=== PATIENT | female | born 2000 | race Caucasian/White ===

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

== ENCOUNTER 2020-07-12 08:35 | Outpatient (RCR) | payer OTHER, SELFPAY | END 2020-07-14 23:59 | LOC: EMPH 08:35 | PROVIDERS: Referring Provider Family Medicine Geriatric Medicine; Visit Provider Family Medicine Geriatric Medicine | DX: Z03.818 Encounter for observation for suspected exposure to other biological agents ruled out (principal) | CPT/HCPCS: 87426 ==

== ENCOUNTER 2020-08-06 10:46 | Outpatient (RCR) | payer OTHER, SELFPAY ==
[2020-07-23 18:05] LABS: Probe Check PASS; Specimen Processing Control PASS
[2020-08-06 11:22] LABS: Probe Check PASS; Specimen Processing Control PASS
== END 2020-08-13 23:59 ==
LOC: EMPH 10:46
PROVIDERS: Referring Provider Family Medicine Geriatric Medicine; Visit Provider Family Medicine Geriatric Medicine
DX: U07.1 COVID-19 (principal)
CPT/HCPCS: 87426; 87635; U0002

== ENCOUNTER 2021-12-04 08:45 | Outpatient (CLI) | payer OTHER, SELFPAY ==
--- NOTE | 2021-12-04 13:41 | NEURO ---
NCS and/or EMG Patient Report Ordering Doctor: Michael Wells DATE OF SERVICE: 12/04/21 Shell presents for electrodiagnostic testing of the upper limbs. She has complaints of numbness and tingling in both hands. Electrodiagnostic findings: Median motor nerve demonstrates normal distal latency, amplitude and conduction velocity bilaterally. The ulnar nerves demonstrate a normal distal latency and amplitude with a slightly less than 20% drop in conduction velocity across the elbow bilaterally. Sensory responses are within normal limits. Normal median and ulnar F waves bilaterally. On needle EMG, all muscles tested in the upper limbs, as well as the cervical paraspinals, showed no evidence of denervation with normal motor unit action potentials. Electrodiagnostic impression:This is an abnormal study in the upper limbs. 1. Electrodiagnostic findings suggestive of bilateral cubital tunnel syndrome, mild in nature. 2 No electrodiagnostic evidence for median neuropathy, including carpal tunnel syndrome 3. No EMG evidence for cervical radiculopathy.
== END 2021-12-04 23:59 | disposition home or self-care (01) ==
LOC: PSN 08:49
PROVIDERS: PCP Pediatrics; Referring Provider Psychiatry & Neurology Sleep Medicine; Visit Provider Psychiatry & Neurology Sleep Medicine
DX: R20.2 Paresthesia of skin (principal); R20.0 Anesthesia of skin; M54.2 Cervicalgia
CPT/HCPCS: 95886; 95912

== ENCOUNTER → 2023-01-23 | Outpatient (CLI) | payer OTHER, SELFPAY ==
[2023-01-23 11:34] LABS: Absolute Lymphocyte Count 1.56 X10^3/uL (0.83-4.51); Absolute Neutrophil Count 9.2 X10^3/uL (2.0-7.7); Basophil# 0.05 X10^3/uL; Basophil% 0.4 % (0-1); Eosinophil# 0.03 X10^3/uL; Eosinophils% 0.3 % (0-5); Hematocrit 41.1 % (37-47); Hemoglobin 13.3 g/dL (12.0-15.0); Lymphocyte # 1.56 X10^3/ul (0.83-4.51); Lymphocyte % 13.6 % (19-41); Mean Corp Hgb Conc 32.4 g/dL (32-36); Mean Corpuscular Hgb 29.2 pg (27.0-32.0); Mean Corpuscular Volume 90.3 fL (81-99); Mean Platelet Vol. 9.6 fl (6.2-12.0); Monocyte% 5.2 % (0-10); NRBC Flagged by Analyzer 0 % (0-5); Neutrophil # 9.15 X10^3/uL (2.7-7.7); Neutrophil % 80.2 % (47-70); Platelet Count 379 K/mm3 (150-450); RBC Distribution Width CV 12.5 % (11.6-14.6); RBC Distribution Width SD 41.1 fl (35.1-43.9); Red Blood Count 4.55 M/mm3 (4.2-5.4); White Blood Count 11.4 K/mm3 (4.4-11.0)
[2023-01-23 13:54] LABS: HIV - WCH Non-Reactive (Nonreactive); Hepatitis B Surface Antigen Non-Reactive (Nonreactive); Hepatitis C Antibody Non-Reactive (Nonreactive); Rubella IgG Equiv (Nonreactive); Syphilis Antibodies Non-reactive
[2023-01-26 22:06] LABS: Chlamydia By Nucleic Acid AMP Negative (Negative); Gonococcus By Nucleic Acid AMP Negative (Negative)
[2023-02-02 16:42] LABS: HPV Reflexed? NOT INDICATED
== END | disposition home or self-care (01) ==
PROVIDERS: Referring Provider Registered Nurse; Visit Provider Registered Nurse
DX: Z34.00 Encounter for supervision of normal first pregnancy, unspecified trimester (principal)
CPT/HCPCS: 36415; 85025; 86703; 86762; 86780; 86803; 86850; 86900; 86901; 87086; 87340; 87491; 87591; 88175; G0145

== ENCOUNTER → 2023-01-23 | Outpatient (CLI) | payer OTHER, SELFPAY ==
[2023-01-23 13:50] LABS: NATERA MAILED SPECIMEN
== END | disposition home or self-care (01) ==
PROVIDERS: Referring Provider Registered Nurse; Visit Provider Registered Nurse
DX: Z34.81 Encounter for supervision of other normal pregnancy, first trimester (principal); Z31.430 Encounter of female for testing for genetic disease carrier status for procreative management; Z3A.00 Weeks of gestation of pregnancy not specified
CPT/HCPCS: 36415

== ENCOUNTER → 2023-05-13 | Outpatient (CLI) | payer OTHER, SELFPAY ==
[2023-05-13 13:28] LABS: Glucose Challenge Gest 1H 50g 127 mg/dL (70-140)
[2023-05-13 14:01] LABS: HIV - WCH Non-Reactive (Nonreactive); Syphilis Antibodies Non-reactive
[2023-05-13 21:04] LABS: Xtra Tube EP Lab EXTRA TUBE
== END | disposition home or self-care (01) ==
PROVIDERS: Referring Provider Registered Nurse; Visit Provider Registered Nurse
DX: Z34.00 Encounter for supervision of normal first pregnancy, unspecified trimester (principal); Z3A.00 Weeks of gestation of pregnancy not specified
CPT/HCPCS: 36415; 82950; 86703; 86780

== ENCOUNTER → 2023-05-27 | Outpatient (CLI) | payer OTHER, SELFPAY ==
[2023-05-27 14:49] LABS: Absolute Lymphocyte Count 2.64 X10^3/uL (0.83-4.51); Absolute Neutrophil Count 7.7 X10^3/uL (2.0-7.7); Basophil# 0.05 X10^3/uL; Basophil% 0.4 % (0-1); Eosinophil# 0.08 X10^3/uL; Eosinophils% 0.7 % (0-5); Hematocrit 35.7 % (37-47); Hemoglobin 11.3 g/dL (12.0-15.0); Lymphocyte # 2.64 X10^3/ul (0.83-4.51); Lymphocyte % 23.6 % (19-41); Mean Corp Hgb Conc 31.7 g/dL (32-36); Mean Corpuscular Hgb 29.4 pg (27.0-32.0); Mean Corpuscular Volume 92.7 fL (81-99); Mean Platelet Vol. 9.7 fl (6.2-12.0); Monocyte# 0.67 X10^3/uL; NRBC Flagged by Analyzer 0 % (0-5); Neutrophil # 7.69 X10^3/uL (2.7-7.7); Neutrophil % 68.8 % (47-70); Platelet Count 342 K/mm3 (150-450); RBC Distribution Width CV 13.2 % (11.6-14.6); Red Blood Count 3.85 M/mm3 (4.2-5.4); White Blood Count 11.2 K/mm3 (4.4-11.0)
[2023-05-27 15:56] LABS: ALB/GLOB Ratio 0.8 RATIO (0.9-2.4); AST(SGOT) 16 U/L (15-37); Alanine Aminotransfer ALT/SGPT 16 U/L (13-56); Albumin, Serum 3.1 g/dL (3.2-5.0); Alkaline Phosphatase 71 U/L (45-117); Anion Gap 5 (5-15); BUN 5 mg/dL (7-18); BUN/Creat Ratio 9.3 RATIO (10-20); Calcium,Total 9.1 mg/dL (8.5-10.1); Chloride 107 mmol/L (98-107); Creatinine, Serum 0.54 mg/dL (0.55-1.02); EST Glomerular Filtration Rate 147 mL/min (>60); Est Glom Filt Rate - Afr Amer 178 mL/min (>60); Glucose 98 mg/dL (74-106); Potassium 3.6 mmol/L (3.5-5.1); Protein, Total 7.1 g/dL (6.4-8.2); Sodium Level 137 mmol/L (136-145); Total Bilirubin < 0.10 mg/dL (0.20-1.00)
== END | disposition home or self-care (01) ==
PROVIDERS: Referring Provider Registered Nurse; Visit Provider Registered Nurse
DX: O16.3 Unspecified maternal hypertension, third trimester (principal); Z3A.00 Weeks of gestation of pregnancy not specified
CPT/HCPCS: 36415; 80053; 85025

== ENCOUNTER → 2023-07-22 | Outpatient (CLI) | payer OTHER, SELFPAY ==
[2023-07-22 14:34] LABS: Absolute Neutrophil Count 8.1 X10^3/uL (2.0-7.7); Basophil# 0.06 X10^3/uL; Basophil% 0.5 % (0-1); Eosinophil# 0.08 X10^3/uL; Eosinophils% 0.7 % (0-5); Hematocrit 35.7 % (37-47); Hemoglobin 11.3 g/dL (12.0-15.0); Mean Corp Hgb Conc 31.7 g/dL (32-36); Mean Corpuscular Hgb 29.1 pg (27.0-32.0); Mean Platelet Vol. 9.7 fl (6.2-12.0); Monocyte# 0.74 X10^3/uL; Monocyte% 6.5 % (0-10); NRBC Flagged by Analyzer 0 % (0-5); Neutrophil # 8.07 X10^3/uL (2.7-7.7); Neutrophil % 70.5 % (47-70); Platelet Count 315 K/mm3 (150-450); RBC Distribution Width CV 14.1 % (11.6-14.6); RBC Distribution Width SD 47.4 fl (35.1-43.9); Red Blood Count 3.88 M/mm3 (4.2-5.4); White Blood Count 11.4 K/mm3 (4.4-11.0)
[2023-07-22 14:46] LABS: ALB/GLOB Ratio 0.8 RATIO (0.9-2.4); AST(SGOT) 16 U/L (15-37); Alanine Aminotransfer ALT/SGPT 12 U/L (13-56); Alkaline Phosphatase 110 U/L (45-117); Anion Gap 5 (5-15); BUN 6 mg/dL (7-18); BUN/Creat Ratio 10.8 RATIO (10-20); Calcium,Total 8.7 mg/dL (8.5-10.1); Chloride 106 mmol/L (98-107); Creatinine, Serum 0.56 mg/dL (0.55-1.02); EST Glomerular Filtration Rate 142 mL/min (>60); Est Glom Filt Rate - Afr Amer 172 mL/min (>60); Glucose 95 mg/dL (74-106); LDH 156 U/L (84-246); Potassium 3.8 mmol/L (3.5-5.1); Sodium Level 136 mmol/L (136-145)
[2023-07-22 14:54] LABS: Protein, Urine (Random) 8.5 mg/dL (<11.9); Protein:Creat Ratio 376 mg/g CRE (0-200)
== END | disposition home or self-care (01) ==
PROVIDERS: Referring Provider Obstetrics & Gynecology; Visit Provider Obstetrics & Gynecology
DX: O99.891 Other specified diseases and conditions complicating pregnancy (principal); Z3A.00 Weeks of gestation of pregnancy not specified; R03.0 Elevated blood-pressure reading, without diagnosis of hypertension
CPT/HCPCS: 36415; 80053; 82570; 83615; 84156; 84550; 85025; 87081

== ENCOUNTER 2023-07-25 09:00 | Outpatient (CLI) | payer OTHER, SELFPAY ==
[2023-07-25 09:11] VITALS: BMI 28.4
[2023-07-25 09:20] VITALS: TEMP 37.1
[2023-07-25 09:21] VITALS: BP 140/88; PULSE 96
--- NOTE | 2023-07-25 10:23 | OB.TRI.HP_ITS ---
HPI - General HPI Narrative MELO BIRMINGHAM, is a 23 y/o @ 36 weeks 5 days who presents to L&D for a scheduled NST and cervix check. she has newly diagnosed mild pre-e and has an IOL set up for 37 weeks. She denies headaches, visual changes, or epigastric pain. Maternal Data Information CEASAR Calculator Estimated Delivery Date Method Current WG Current Estimate 08/17/23 LMP (Certain) 36w 5d PFSH PFSH Home Medications prenat.vits,stevie,bym-[id number]-[id number] 1 tab PO DAILY 06/24/23 [History Last Taken 07/24/23] Allergy/AdvReac Type Severity Reaction Status Date / Time No Known Allergies Allergy Verified 07/25/23 09:12 Social History household members: spouse housing: house number of children: 0 current occupational status: employed current occupation: [employer] pets and animals: Yes Smoking Status: Never smoker alcohol intake: never substance use type: does not use additional social history: - Loyd -dorita @ [employer] Visit Details Expected Delivery Route/Plan Labor Preferences- CB/BF classes: yes labor support person: Loyd labor intervention preferences: [] pain management options preferred: open to epidural if needed cut cord/dad catch: cord : yes PP control planned: discussed discussed possible routes of delivery and associated risks: [] special requests: [] Plans Covid status: unvaccinated Flu vaccine: [] Tdap vaccine: [] Rhogam: na LARC form signed: yes Problem list reviewed and updated with the most current plan of care details and appropriate orders placed. Relevant counseling for the gestational age provided. Continue routine care and follow up unless otherwise noted in visit notes/problem list details OB Flowsheet Initial Weight: Not Recorded Date -?-?-?-?-?-?-?-?-?-?-?-?- EGA Weight BP Urine Prot -?-?-?-?-?-?-?-?-?-?-?-?- Glucose FHR FuHt Pres Dilation -?-?-?-?-?-?-?-?-?-?-?-?- Effaced St Visit Note 01/23/23 -?-?-?-?-?-?-?-?-?-?-?-?- 10w 4d 131 lb 6 oz 160/86 130/90 -?-?-?-?-?-?-?-?-?-?-?-?- 185 -?-?-?-?-?-?-?-?-?-?-?-?- LC- new ob. us c w LMP. scan with JV. accepts carrier and genetic screening. oriented to practice 02/17/23 -?-?-?-?-?-?-?-?-?-?-?-?- 14w 1d 135 lb 4 oz 137/82 Nega tive -?-?-?-?-?--?-?-?-?-?-?-?- Negative 165 -?-?-?-?-?-?-?-?-?-?-?-?- KW-no vb/crampin g. formal ultrasound ordered. AFP discussed 03/18/23 -?-?-?-?-?-?-?-?-?-?-?-?- 18w 2d 138 lb 8 oz 134/79 Nega tive -?-?-?-?-?-?-?-?-?-?-?-?- Negative 165 -?-?-?-?-?-?-?-?-?-?-?-?- JV- no lof, vagi nal bleeding, or cramping. has anatomy scan scheduled for 03/23/23 04/15/23 -?-?-?-?-?-?-?-?-?-?-?-?- 22w 2d 143 lb 4 oz 146/82 124/78 -?-?-?-?-?-?-?-?-?-?-?-?- 158 -?-?-?-?-?-?-?-?-?-?-?-?- LC-no vb/crampin g. no concerns. 05/13/23 -?-?-?-?-?-?-?-?-?-?-?-?- 26w 2d 148 lb 124/82 Negative -?-?-?-?-?-?-?-?-?-?-?-?- Negative 153 -?-?-?-?-?-?-?-?-?-?-?-?- MH-No VB, LOF. G ood FM. [facility]. 28 wk labs. 05/27/23 -?-?-?-?-?-?-?-?-?-?-?-?- 28w 2d 150 lb 8 oz 144/76 Nega tive -?-?-?-?-?-?-?-?-?-?-?-?- Negative 140 28 -?-?-?-?-?-?-?-?-?-?-?-?- LC- no lof/ctx/v b. good fm. denies davalos/visual changes, ruq pain.cbc not obained at 26 weeks, will obtain with CMP. LC- no lof/ctx/vb. good fm. denies davalos/visual changes, ruq pain.cbc not obained at 26 weeks, will obtain with CMP. wants tdap at 34 weeks. 06/10/23 -?-?-?-?-?-?-?-?-?-?-?-?- 30w 2d 153 lb 8 oz 127/70 Nega tive -?-?-?-?-?-?-?-?-?-?-?-?- Negative 145 30 -?-?-?-?-?-?-?-?-?-?-?-?- JV- no lof, vagi nal bleeding, or dec fm. bp's normal at home and here since last visit. 06/24/23 -?-?-?-?-?-?-?-?-?-?-?-?- 32w 2d 155 lb 6 oz 155/88 128/66 -?-?-?-?-?-?-?-?-?-?-?-?- 140 32 -?-?-?-?-?-?-?-?-?-?-?-?- LC- no vb/lof/ LC- no vb/lof/ctx. good fm. tdap today.no concerns. 07/08/23 -?-?-?-?-?-?-?-?-?-?-?-?- 34w 2d 158 lb 2 oz 134/78 Nega tive -?-?-?-?-?-?-?-?-?-?-?-?- Negative 145 34 Cephalic -?-?-?-?-?-?-?-?-?-?-?-?- JV- no lof, vagi nal bleeding, or dec fm. still has indigestion. omeprazole not working and since at cat3, recommend stopping it. bp normal today. if high again next visit willrpt pih labs and order us. 07/22/23 -?-?-?-?-?-?-?-?-?-?-?-?- 36w 2d 161 lb 4 oz 138/89 Nega tive -?-?-?-?-?-?-?-?-?-?-?-?- Negative 140 35 Cephalic -?-?-?-?-?-?-?-?-?-?-?-?- JV- pt became te arful and argumentative when told that bp was slightly elevated again today. we decided last week that she would have labs for PIH if bp remained high. she states that she had a normal blood pressure at home. denies headaches and visual changes. No RUQ pain. Risks of pre-eclampsia discussed. GBS collected. no protein in urine. JV- bp slightly elevated aga in. sending for PIH labs. has no symptoms of headache, visual changes, or RUQ pain. States BP at home is always normal. ROS Constitutional Constitutional: Reports systems reviewed and no addt'l complaints, except as documented Gastrointestinal Gastrointestinal: Denies bloating, constipation, cramping, diarrhea, nausea or vomiting Genitourinary Genitourinary: Reports other Details: Denies vaginal odor, vaginal bleeding, or vaginal discharge ; Denies difficulty urinating or flank pain NST FHR Rate Baby A Baseline: 140 Variability:: Moderate Accelerations:: 15 x 15 Decelerations:: None NST Reactive:: Yes FHR Category:: Category I Assessment & Plan (1) Mild pre-eclampsia: COMMENT: plan IOL at 37 weeks. (thursday07/27/23 at 7pm) NST on thursday07/25/23 on L&D PLAN: NST reactive. plan for IOL thursday pm - cytotec. cx is 0.5 cm dilated today. (2) Not immune to rubella: COMMENT: Equivocal-offer MMR PP (3) : QUALIFIERS: Weeks of gestation: 36 weeks Qualified Code(s): Z3A.36 - 36 weeks gestation of COMMENT: NIPT low risk, carrier neg. . normal anatomy (4) Supervision of normal first : QUALIFIERS: Trimester: second trimester Qualified Code(s): Z34.02 - Encounter for supervision of normal first , second trimester COMMENT: PRR, CEASAR 08/17/2023, Loyd Charges/Coding Multi Select Codes Urinary/Genital Urinary/Genital CPT Codes: 33957-82 non-stress test Interp
--- NOTE | 2023-07-25 10:23 | OB.TRI.NOTE ---
HPI - General HPI Narrative MELO BIRMINGHAM, is a 23 y/o @ 36 weeks 5 days who presents to L&D for a scheduled NST and cervix check. she has newly diagnosed mild pre-e and has an IOL set up for 37 weeks. She denies headaches, visual changes, or epigastric pain. Maternal Data Information CEASAR Calculator Estimated Delivery Date Method Current WG Current Estimate 08/17/23 LMP (Certain) 36w 5d PFSH PFSH Home Medications prenat.vits,stevie,[id number]-sndgv 1 tab PO DAILY 06/24/23 [History Last Taken 07/24/23] Allergy/AdvReac Type Severity Reaction Status Date / Time No Known Allergies Allergy Verified 07/25/23 09:12 Social History household members: spouse housing: house number of children: 0 current occupational status: employed current occupation: [employer] pets and animals: Yes Smoking Status: Never smoker alcohol intake: never substance use type: does not use 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 Relevant counseling for the gestational age provided. Continue routine care and follow up unless otherwise noted in visit notes/problem list details OB Flowsheet Initial Weight: Not Recorded Date <del>?</del> EGA Weight BP Urine Prot <del>?</del> Glucose FHR FuHt Pres Dilation <del>?</del> Effaced St Visit Note 01/23/23 <del>?</del> 10w 4d 131 lb 6 oz 160/86 130/90 <del>?</del> 185 <del>?</del> LC- new ob. us cw LMP. scan with JV. accepts carrier and genetic screening. oriented to practice 02/17/23 <del>?</del> 14w 1d 135 lb 4 oz 137/82 Negative <del>?</del> Negative 165 <del>?</del> KW-no vb/cramping. formal ultrasound ordered. AFP discussed 03/18/23 <del>?</del> 18w 2d 138 lb 8 oz 134/79 Negative <del>?</del> Negative 165 <del>?</del> JV- no lof, vaginal bleeding, or cramping. has anatomy scan scheduled for 03/23/23 04/15/23 <del>?</del> 22w 2d 143 lb 4 oz 146/82 124/78 <del>?</del> 158 <del>?</del> LC-no vb/cramping. no concerns. 05/13/23 <del>?</del> 26w 2d 148 lb 124/82 Negative <del>?</del> Negative 153 <del>?</del> MH-No VB, LOF. Good FM. Larc. 28 wk labs. 05/27/23 <del>?</del> 28w 2d 150 lb 8 oz 144/76 Negative <del>?</del> Negative 140 28 <del>?</del> LC- no lof/ctx/vb. good fm. denies davalos/visual changes, ruq pain.cbc not obained at 26 weeks, will obtain with CMP. LC- no lof/ctx/vb. good fm. denies davalos/visual changes, ruq pain.cbc not obained at 26 weeks, will obtain with CMP. wants tdap at 34 weeks. 06/10/23 <del>?</del> 30w 2d 153 lb 8 oz 127/70 Negative <del>?</del> Negative 145 30 <del>?</del> JV- no lof, vaginal bleeding, or dec fm. bp's normal at home and here since last visit. 06/24/23 <del>?</del> 32w 2d 155 lb 6 oz 155/88 128/66 <del>?</del> 140 32 <del>?</del> LC- no vb/lof/ LC- no vb/lof/ctx. good fm. tdap today.no concerns. 07/08/23 <del>?</del> 34w 2d 158 lb 2 oz 134/78 Negative <del>?</del> Negative 145 34 Cephalic <del>?</del> JV- no lof, vaginal bleeding, or dec fm. still has indigestion. omeprazole not working and since at cat3, recommend stopping it. bp normal today. if high again next visit [facility] and order us. 07/22/23 <del>?</del> 36w 2d 161 lb 4 oz 138/89 Negative <del>?</del> Negative 140 35 Cephalic <del>?</del> JV- pt became tearful and argumentative when told that bp was slightly elevated again today. we decided last week that she would have labs for PIH if bp remained high. she states that she had a normal blood pressure at home. denies headaches and visual changes. No RUQ pain. Risks of pre-eclampsia discussed. GBS collected. no protein in urine. JV- bp slightly elevated again. sending for PIH labs. has no symptoms of headache, visual changes, or RUQ pain. States BP at home is always normal. ROS Constitutional Constitutional: Reports systems reviewed and no addt'l complaints, except as documented Gastrointestinal Gastrointestinal: Denies bloating, constipation, cramping, diarrhea, nausea or vomiting Genitourinary Genitourinary: Reports other Details: Denies vaginal odor, vaginal bleeding, or vaginal discharge ; Denies difficulty urinating or flank pain NST FHR Rate Baby A Baseline: 140 Variability:: Moderate Accelerations:: 15 x 15 Decelerations:: None NST Reactive:: Yes FHR Category:: Category I Assessment & Plan (1) Mild pre-eclampsia: COMMENT: plan IOL at 37 weeks. (thursday07/27/23 at 7pm) NST on thursday07/25/23 on L&D PLAN: NST reactive. plan for IOL thursday pm - cytotec. cx is 0.5 cm dilated today. (2) Not immune to rubella: COMMENT: Equivocal-offer MMR PP (3) : QUALIFIERS: Weeks of gestation: 36 weeks Qualified Code(s): Z3A.36 - 36 weeks gestation of COMMENT: NIPT low risk, carrier neg. . normal anatomy (4) Supervision of normal first : QUALIFIERS: Trimester: second trimester Qualified Code(s): Z34.02 - Encounter for supervision of normal first , second trimester COMMENT: PRR, CEASAR 08/17/2023, Loyd Charges/Coding Multi Select Codes Urinary/Genital Urinary/Genital CPT Codes: 31991-40 non-stress test Interp
== END 2023-07-25 10:20 | disposition home or self-care (01) ==
LOC: WPOUT 09:04 → WP 09:05
PROVIDERS: Referring Provider Registered Nurse; Visit Provider Registered Nurse
DX: O14.03 Mild to moderate pre-eclampsia, third trimester (principal); Z3A.36 36 weeks gestation of pregnancy
CPT/HCPCS: 59025; 59050; 99221; G0378

== ENCOUNTER 2023-07-27 19:04 | Inpatient (IN) | payer OTHER, SELFPAY ==
[2023-07-27 19:24] VITALS: BMI 28.7
[2023-07-27] MEDS: Lactated Ringers 1,000 ML 50 ML IV (19:35)
[2023-07-27 19:58] LABS: Absolute Lymphocyte Count 2.81 X10^3/uL (0.83-4.51); Absolute Neutrophil Count 7.1 X10^3/uL (2.0-7.7); Basophil# 0.05 X10^3/uL; Basophil% 0.5 % (0-1); Eosinophil# 0.06 X10^3/uL; Eosinophils% 0.6 % (0-5); Hematocrit 35.6 % (37-47); Hemoglobin 11.4 g/dL (12.0-15.0); Lymphocyte # 2.81 X10^3/ul (0.83-4.51); Lymphocyte % 26.1 % (19-41); Mean Corpuscular Hgb 29.5 pg (27.0-32.0); Mean Corpuscular Volume 92.2 fL (81-99); Mean Platelet Vol. 10.1 fl (6.2-12.0); Monocyte# 0.74 X10^3/uL; Monocyte% 6.9 % (0-10); NRBC Flagged by Analyzer 0 % (0-5); Neutrophil # 7.05 X10^3/uL (2.7-7.7); Neutrophil % 65.5 % (47-70); Platelet Count 323 K/mm3 (150-450); RBC Distribution Width SD 46.3 fl (35.1-43.9); Red Blood Count 3.86 M/mm3 (4.2-5.4); White Blood Count 10.8 K/mm3 (4.4-11.0)
[2023-07-27 20:08] LABS: Protein, Urine (Random) 9.2 mg/dL (<11.9); Protein:Creat Ratio 138 mg/g CRE (0-200)
--- NOTE | 2023-07-27 20:08 | HP.PCM.OB_ITS ---
HPI - General General Date of Admission: 07/27/23 HPI Narrative MELO BIRMINGHAM, is a 23 F who presents at 37 weeks for IOL for mild pre- eclampsia. BP elevated last week with +proteinuria. reactive NST on Thursday.. denies headaches, visual changes or RUQ pain. active fetus, negative lof/vb/ctx GBS negative Maternal Data Information CEASAR Calculator Estimated Delivery Date Method Current WG Current Estimate 08/17/23 LMP (Certain) 37w 0d PFSH PFSH Home Medications prenat.vits,stevie,yzv-aoru-dyzrq 1 tab PO DAILY 06/24/23 [History Last Taken 07/26/23 21:00] Allergy/AdvReac Type Severity Reaction Status Date / Time No Known Allergies Allergy Verified 07/27/23 19:26 Social History household members: spouse housing: house number of children: 0 current occupational status: employed current occupation: [employer] pets and animals: Yes Smoking Status: Never smoker alcohol intake: never substance use type: does not use additional social history: - Loyd neil @ [employer] History Elective abortions Hx Para 0 Spontaneous abortions Hx # Term Pregnancies Ectopic pregnancies Hx # Pregnancies Multiple births # of living children Visit Details Expected Delivery Route/Plan Labor Preferences- CB/BF classes: yes labor support person: Loyd labor intervention preferences: [] pain management options preferred: open to epidural if needed cut cord/dad catch: cord : yes PP control planned: discussed discussed possible routes of delivery and associated risks: [] special requests: [] Plans Covid status: unvaccinated Flu vaccine: [] Tdap vaccine: [] Rhogam: na LARC form signed: yes Problem list reviewed and updated with the most current plan of care details and appropriate orders placed. Relevant counseling for the gestational age provided. Continue routine care and follow up unless otherwise noted in visit notes/problem list details OB Flowsheet Initial Weight: Not Recorded Date -?-?-?-?-?-?-?-?-?-?-?-?- EGA Weight BP Urine Prot -?-?-?-?-?-?-?-?-?-?-?-?- Glucose FHR FuHt Pres Dilation -?-?-?-?-?-?-?-?-?-?-?-?- Effaced St Visit Note 01/23/23 -?-?-?-?-?-?-?-?-?-?-?-?- 10w 4d 131 lb 6 oz 160/86 130/90 -?-?-?-?-?-?-?-?-?-?-?-?- 185 -?-?-?-?-?-?-?-?-?-?-?-?- LC- new ob. us c w LMP. scan with JV. accepts carrier and genetic screening. oriented to practice 02/17/23 -?-?-?-?-?-?-?--?-?-?-?-?- 14w 1d 135 lb 4 oz 137/82 Nega tive -?-?-?-?-?-?-?-?-?-?-?-?- Negative 165 -?-?-?-?-?-?-?-?-?-?-?-?- KW-no vb/crampin g. formal ultrasound ordered. AFP discussed 03/18/23 -?-?-?-?-?-?-?-?-?-?-?-?- 18w 2d 138 lb 8 oz 134/79 Nega tive -?-?-?-?-?-?-?-?-?-?-?-?- Negative 165 -?-?-?-?-?-?-?-?-?-?-?-?- JV- no lof, vagi nal bleeding, or cramping. has anatomy scan scheduled for 03/23/23 04/15/23 -?-?-?-?-?-?-?-?-?-?-?-?- 22w 2d 143 lb 4 oz 146/82 124/78 -?-?-?-?-?-?-?-?-?-?-?-?- 158 -?-?-?-?-?-?-?-?-?-?-?-?- LC-no vb/crampin g. no concerns. 05/13/23 -?-?-?-?-?-?-?-?-?--?-?-?- 26w 2d 148 lb 124/82 Negative -?-?-?-?-?-?-?-?-?-?-?-?- Negative 153 -?-?-?-?-?-?-?-?-?-?-?-?- MH-No VB, LOF. G ood FM. Larc. 28 wk labs. 05/27/23 -?-?-?-?-?-?-?-?-?-?-?-?- 28w 2d 150 lb 8 oz 144/76 Nega tive -?-?-?-?-?-?-?-?-?-?-?-?- Negative 140 28 -?-?-?-?-?-?-?-?-?--?-?-?- LC- no lof/ctx/v b. good fm. denies davalos/visual changes, ruq pain.cbc not obained at 26 weeks, will obtain with CMP. LC- no lof/ctx/vb. good fm. denies davalos/visual changes, ruq pain.cbc not obained at 26 weeks, will obtain with CMP. wants tdap at 34 weeks. 06/10/23 -?-?-?-?-?-?-?-?-?-?-?-?- 30w 2d 153 lb 8 oz 127/70 Nega tive -?-?-?-?-?-?-?-?-?-?--?-?- Negative 145 30 -?-?-?-?-?-?-?-?-?-?-?-?- JV- no lof, vagi nal bleeding, or dec fm. bp's normal at home and here since last visit. 06/24/23 -?-?-?-?-?-?-?-?-?-?-?-?- 32w 2d 155 lb 6 oz 155/88 128/66 -?-?-?-?-?-?-?-?-?-?-?-?- 140 32 -?-?-?-?-?-?-?-?-?-?-?-?- LC- no vb/lof/ LC- no vb/lof/ctx. good fm. tdap today.no concerns. 07/08/23 -?-?-?-?-?-?-?-?-?-?-?-?- 34w 2d 158 lb 2 oz 134/78 Nega tive -?-?-?-?-?-?-?-?-?-?-?-?- Negative 145 34 Cephalic -?-?-?-?-?-?-?-?-?-?-?-?- JV- no lof, vagi nal bleeding, or dec fm. still has indigestion. omeprazole not working and since at cat3, recommend stopping it. bp normal today. if high again next visit willrpt pih labs and order us. 07/22/23 -?-?-?-?-?-?-?-?-?-?-?-?- 36w 2d 161 lb 4 oz 138/89 Nega tive -?-?-?-?-?-?-?-?-?-?-?-?- Negative 140 35 Cephalic -?-?-?-?-?-?-?-?-?-?-?-?- JV- pt became te arful and argumentative when told that bp was slightly elevated again today. we decided last week that she would have labs for PIH if bp remained high. she states that she had a normal blood pressure at home. denies headaches and visual changes. No RUQ pain. Risks of pre-eclampsia discussed. GBS collected. no protein in urine. JV- bp slightly elevated aga in. sending for PIH labs. has no symptoms of headache, visual changes, or RUQ pain. States BP at home is always normal. NST FHR Rate Baby A Baseline: 140 Variability:: Moderate Accelerations:: 15 x 15 Decelerations:: None NST Reactive:: Yes FHR Category:: Category I Uterine Activity:: irregular ROS Cardiovascular Cardiovascular: Denies abdominal pain, chest pain, diaphoresis or dyspnea Respiratory/Chest Respiratory/Chest: Denies change in mental status, chest congestion, chest tightness, cough, shortness of breath at rest, shortness of breath with exertion, breast mass, breast pain, breast skin changes, breast swelling, change in breast shape or nipple discharge Genitourinary Genitourinary: Reports change in urinary stream Musculoskeletal Musculoskeletal: Reports none Integumentary Integumentary: Reports none Neurologic Neurologic: Reports none Psychiatric Psychiatric: Reports none Endocrine Endocrinology: Reports none Hematologic/Lymphatic Hematologic/Lymphatic: Reports none Allergic/Immunologic Allergic/Immunologic: Reports none Vital Signs Vital Signs Vital Signs: Weight Weight: 162 lb 4.163 oz Body Mass Index (BMI) 28.7 Physical Exam Const alert, oriented x3 and no apparent distress General Appearance: cooperative, comfortable and well kempt Orientation / Consciousness: awake and oriented to person Exam Limitations: no limitations HEENT normocephalic Neck full ROM Chest inspection of chest normal Resp normal respiratory effort, normal air movement and no retractions Effort and Inspection: able to speak in complete sentences and symmetric chest movement Cardio regular rate Peripheral Pulses: pulses 2+ throughout GI normal to inspection, nondistended, normoactive bowel sounds Inspection: gravid no CVA tenderness and appearance of the vagina normal External Female Exam: normal appearance of the urethra; Negative for external lesion OB / External & Speculum: external exam normal Manual OB Exam: estimated gestational size appropriate and presentation cephalic Uterus Palpation: Negative for uterus tender Extremity normal to inspection Skin no rashes or lesions noted Neuro deep tendon reflexes 2+ bilaterally and gait normal Motor Exam: strength 5/5 throughout and clonus absent Psych Activity / Motor Behavior: appropriate eye contact Speech: normal speech Labs Labs Labs: Blood Type A POSITIVE Antibody Screen NEGATIVE Hct 35.6 % (37-47) L Hgb 11.4 g/dL (12.0-15.0) L Syphilis Total Ab Non-reactive Rubella IgG Antibody Equiv (Nonreactive) Hep Bs Antigen Non-Reactive (Nonreactive) Hepatitis C Antibody Non-Reactive (Nonreactive) Chlamydia DNA (GOPAL) Negative (Negative) N.gonorrhoeae DNA (GOPAL) Negative (Negative) HIV 1&2 Antibody Non-Reactive (Nonreactive) Glucose 1 Hr 50 gm 127 mg/dL (70-140) Assessment & Plan (1) Mild pre-eclampsia: COMMENT: plan IOL at 37 weeks. (thursday07/27/23 at 7pm) NST on thursday07/25/23 on L&D PLAN: cytotec 25mcg q4 hours (2) Elevated BP without diagnosis of hypertension: COMMENT: baseline labs obtained and normal. seems to be isolated to one episode (3) Not immune to rubella: COMMENT: Equivocal-offer MMR PP (4) : QUALIFIERS: Weeks of gestation: 36 weeks Qualified Code(s): Z3A.36 - 36 weeks gestation of COMMENT: Neg GBS.NIPT low risk, carrier neg. . normal anatomy (5) Supervision of normal first : QUALIFIERS: Trimester: second trimester Qualified Code(s): Z34.02 - Encounter for supervision of normal first , second trimester COMMENT: PRR, CEASAR 08/17/2023, Loyd PLAN: Plan Patient presents IOL for pre-eclampsia at 37 weeks without severe features. Pain management: plans epidural. GBS negative. Management of any complications: pre-eclampsia I have reviewed the [facility] and made any clinically relevant updates. updated on admission, exam and plan of care and agrees with midwifery co-management for mild pre-eclampsia.
[2023-07-27] MEDS: Mag Hydrox/Al Hydrox/Simeth 30 ML UDC PO (20:12)
[2023-07-27 20:17] LABS: AST(SGOT) 22 U/L (15-37); Alanine Aminotransfer ALT/SGPT 17 U/L (13-56); EST Glomerular Filtration Rate 129 mL/min (>60); Est Glom Filt Rate - Afr Amer 157 mL/min (>60); Uric Acid 4.3 mg/dL (2.6-6.0)
[2023-07-27 20:20] VITALS: BP 146/81; PULSE 80; TEMP 36.9
[2023-07-27 20:38] LABS: Syphilis Antibodies Non-reactive
[2023-07-27] MEDS: Famotidine 20 MG Tablet PO (21:07)
[2023-07-27] MEDS: miSOPROStol 25 MCG TABLET PO (21:24)
[2023-07-27 21:25] VITALS: BP 135/83
[2023-07-27 21:26] VITALS: PULSE 79; TEMP 37.1; O2SAT 98
[2023-07-28] VITALS (33 sets, daily range): BP systolic 114–167; BP diastolic 63–104; PULSE 75–112; TEMP 36.1–36.9; O2SAT 99–100
[2023-07-28] MEDS: miSOPROStol 25 MCG TABLET PO ×2 (01:35→05:38)
[2023-07-28] MEDS: Acetaminophen 500 MG Tablet PO (02:34)
[2023-07-28] MEDS: Famotidine 20 MG Tablet PO ×2 (08:07→20:12)
[2023-07-28] MEDS: Ondansetron 4 MG/2 ML Vial IV (08:13)
[2023-07-28] MEDS: 0.9% Saline Lock 10 ML Syringe IV ×2 (08:14→20:12)
[2023-07-28] MEDS: miSOPROStol 50 MCG TABLET PO ×2 (09:39→16:08)
--- NOTE | 2023-07-28 11:57 | PN_ITS ---
Progress Note Coping well with contractions current tracing: FHT: 135 Moderate variability reactive no decelerations category I tracing [place]: 2-4 minute Contractions Membranes: intact SVE: 1/50/-3 at 0800 this am A/P: Continue with position changes Continue Cytotec Repeat SVE between [id number] Start pitocin per protocol when appropriate Epidural per anesthesia Anticipate Dr Brandon aware of plan and agrees with plan of care Assessment & Plan Assessment/Plan (1) Mild pre-eclampsia: (2) Elevated BP without diagnosis of hypertension: (3) Not immune to rubella: (4) : QUALIFIERS: Weeks of gestation: 36 weeks Qualified Code(s): Z3A.36 - 36 weeks gestation of (5) Supervision of normal first : QUALIFIERS: Trimester: second trimester Qualified Code(s): Z34.02 - Encounter for supervision of normal first , second trimester (6) Encounter for induction of labor: PLAN: Patient presents IOL, plan management for with cytotec/pitocin/AROM. Pain management: plans epidural. GBS negative. Management of any complications: mild pre eclampsia I have reviewed the [facility] and made any clinically relevant updates. Procedures Urinary/Genital [id number]: No Charge
[2023-07-28] MEDS: 0.9% Normal Saline Single 100 ML IV.SOLN. INTRA-UTER (20:53)
[2023-07-28] MEDS: fentaNYL 100 MCG/2 ML Ampul IV (21:02)
--- NOTE | 2023-07-28 21:03 | PN_ITS ---
Progress Note Coping well with contractions current tracing: FHT: 140 Moderate variability reactive no decelerations category I tracing [place]: 3-5 Contractions Membranes: intact SVE: 1.5/50/-2 reviewed tracing abnormalities since last note: none noted A/P: Mann Bulb placed Continue with position changes Start and titrate pitocin per protocol when appropriate Epidural when requested per anesthesia Anticipate Dr Brandon aware of plan and agrees with plan of care Assessment & Plan Assessment/Plan (1) Encounter for induction of labor: (2) Mild pre-eclampsia: (3) Elevated BP without diagnosis of hypertension: (4) Not immune to rubella: (5) : QUALIFIERS: Weeks of gestation: 36 weeks Qualified Code(s): Z3A.36 - 36 weeks gestation of (6) Supervision of normal first : QUALIFIERS: Trimester: second trimester Qualified Code(s): Z34.02 - Encounter for supervision of normal first , second trimester Multi Select Codes Urinary/Genital Urinary/Genital CPT Codes: No Charge
[2023-07-28] MEDS: Lactated Ringers 1,000 ML 200 ML IV (22:12)
[2023-07-28] MEDS: LACTATED RINGERS 500 ML 999 ML IV (22:13)
[2023-07-28] MEDS: Oxytocin 15 Units/NS 250ml 15 UNITS/250 ML IV.SOLN 2 UNITS IV (23:00)
[2023-07-28] MEDS: fentaNYL-bupivacaine (epidural) 100 ML BAG EPIDURAL (23:05)
[2023-07-29] VITALS (40 sets, daily range): BP systolic 106–140; BP diastolic 54–93; PULSE 58–144; RESP 14–20; TEMP 36.1–36.9; O2SAT 83–100
[2023-07-29] MEDS: Ondansetron 4 MG/2 ML Vial IV ×3 (00:19→14:04)
[2023-07-29] MEDS: 0.9% Saline Lock 10 ML Syringe IV ×2 (00:19→21:05)
[2023-07-29] MEDS: proCHLORPERazine 10 MG/2 ML Vial IV ×2 (01:04→19:53)
[2023-07-29] MEDS: Lactated Ringers 1,000 ML 200 ML IV ×3 (02:38→12:54)
[2023-07-29] MEDS: fentaNYL-bupivacaine (epidural) 100 ML BAG EPIDURAL ×3 (02:39→11:22)
[2023-07-29] MEDS: LACTATED RINGERS 500 ML 999 ML IV (05:00)
--- NOTE | 2023-07-29 08:09 | PCM.PN.BLA ---
Progress Note pt is comfortable with epidural. Nurses report that a farris bulb was placed last night and came out spontaneously at 1 am. Her membranes then ruptured spontaneously but that a forebag may still be present current tracing: FHT: 130's, Moderate variability reactive no decelerations category I tracing [place]: q2 min with some coupling Contractions Cx: 4/60/-3, forebag ruptured and IUPC placed Extremities: now has 2+ pitting edema, this is a change from her office visit last week A/P: 23 y/o G1 @ 37 weeks 2 days, mild pre-eclampsia. bp currently 140's/90's, no headaches or severe features -continue pitocin and close observation.
[2023-07-29] MEDS: Famotidine 20 MG Tablet PO (08:12)
--- NOTE | 2023-07-29 13:04 | PCM.PN.BLA ---
Progress Note pt is complaining of intermittent mid abdominal pain and vaginal pressure. The nurses have been performing side lying release, and other different positions to help her dilate. She denies fevers or chills. nausea improved current tracing: FHT: 140 Moderate variability reactive no decelerations category I tracing currently. There was one area of concern that showed a slow decline in the heart beat with slow gradual return and another that showed a late deceleration, but overall cat 1 tracing. [place]: some coupling Contractions. MVU's are at times 120's and others 250's. Pitocin is at 18 currently cx: unchanged from am exam. 60/-3. clear fluid still. A/P: mild pre-e protracted labor membranes ruptured x 13 hours, pitocin running for 12 hours without cervical change pt was given the option for continuing to max pitocin or to have a section now. She wants to wait a little longer still. Nurses will check her again at 3 pm and call with exam
[2023-07-29] MEDS: Acetaminophen 500 MG Tablet PO ×2 (14:44→14:50)
[2023-07-29] MEDS: Sodium Citrate/Citric Acid 30 ML UDC PO (16:07)
[2023-07-29] MEDS: Cefazolin 2 GM in 0.9% Normal Saline (100mL Bag) 100 ML IV (16:15)
[2023-07-29] MEDS: Carboprost Tromethamine 250 MCG/ML Ampul IM (16:55)
[2023-07-29] MEDS: Azithromycin 500 MG in Dextrose 5%-Water (250mL Bag) 250 ML 250 MG IV (17:00)
[2023-07-29] MEDS: BUPIVACAINE LIPOSOME/PF 20 ML VIAL OPERA.SITE (17:15)
[2023-07-29] MEDS: Bupivacaine 0.25% 30 ML Vial (17:15)
--- NOTE | 2023-07-29 17:21 | EX.PCM.OBRPT ---
Assessment & Plan (1) Failure to progress in first stage of labor: (2) Mild pre-eclampsia: COMMENT: plan IOL at 37 weeks. (thursday07/27/23 at 7pm) NST on thursday07/25/23 on L&D (3) Not immune to rubella: COMMENT: Equivocal-offer MMR PP (4) : QUALIFIERS: Weeks of gestation: 36 weeks Qualified Code(s): Z3A.36 - 36 weeks gestation of COMMENT: Neg GBS.NIPT low risk, carrier neg. . normal anatomy (5) Supervision of normal first : QUALIFIERS: Trimester: second trimester Qualified Code(s): Z34.02 - Encounter for supervision of normal first , second trimester COMMENT: PRR, CEASAR 08/17/2023, Loyd Maternal Data Information CEASAR Calculator Estimated Delivery Date Method Current WG Current Estimate 08/17/23 LMP (Certain) 37w 2d Final CEASAR: 08/17/23 Final CEASAR Source: LMP Gestational age: 37 weeks 2 days Details Operative Information Date of Procedure: 07/29/23 Pre-Operative Diagnosis: 23 y/o @ 37 weeks 2 days, mild pre-eclampsia, failure to progress Post-Operative Diagnosis: 23 y/o @ 37 weeks 2 days, mild pre-eclampsia, failure to progress Type of Anesthesia: Epidural Antibiotic Given: Ancef 2 grams IV x1 and Zithromax 500 mg/5 mL X1 Drain: Mann to straight drain Estimated Blood Loss: 700cc Findings Description of Procedure: The patient was brought to the operating room after she had stalled out at 3 cm/60/-3 for 18 hours with pitocin up to 20 mu/min. She desired then a primary section. Epidural anesthesia was running, but not adequate. She was administered Ketamine by anesthesia. She was prepped and draped in the normal sterile fashion and was placed in a dorsal supine position with a leftward tilt. Pfannenstiel skin incision was made with a scalpel and carried through to the underlying layers. The fascia was nicked in the midline and extended laterally using Solis scissors. The anterior aspect of the fascia was grasped with Joselyn clamps and the underlying rectus muscles dissected off using the Metzenbaum scissors. The inferior aspect the fascia was also grasped with Joselyn clamps and the underlying rectus muscle dissected off with the Metzenbaum scissors. The rectus muscles were in the midline. Peritoneum was entered sharply. The uterus was identified and a bladder blade was inserted into the abdomen. Bladder flap was created off the uterus using Metzenbaum scissors. A transverse incision was made with a scalpel and extended laterally manually. The 's head was grasped with the help of my nursing home assistant administrator and fundal pressure the was delivered through the uterine incision without difficulty. The mouth and nares were bulb suctioned. After a 30 second delay the cord was clamped and cut. The was handed off to the awaiting nurse for routine assessment. Placenta was delivered manually without difficulty. The uterus was exteriorized and cleared of all clots and debris. Incision was closed with an 0 Vicryl suture in a running locked fashion. The uterus was found to be boggy and she was given an extra bag of pitocin and hemabate. a b-reyes suture was then placed as the uterus was still boggy. The stitch however did not hold well. A left uterine artery ligation was then performed and the uterus firmed up. The uterus was returned to the abdomen. The gutters were cleared of all clots and debris. The peritoneum was closed in a pursestring pattern using a 3-0 Vicryl suture. This muscle was reapproximated with a 3-0 Vicryl. The fascia was closed with an [ 0 Vicryl] suture. Subcutaneous tissue layer was closed using a plain gut suture. The skin was closed with a 4-0 Monocryl subcuticular stitch. The patient tolerated the procedure well sponge lap and needle counts were correct at each tissue closure plane and the patient is now being brought to the recovery room in stable condition Presentation: Positive for Vertex Amniotic Membrane Rupture Type: Spontaneous Time of Membrane Ruptured: 10 pm on Amniotic Fluid Description: Clear Placental Delivery Description: Manual Removal Placenta Disposition: [facility] Cord Vessel Description: 3 Vessels Cord Entanglement: None A Gender: Female (1 minute): 10 (5 minute): 10 Delayed Cord Clamping: Yes Complications Risks of Surgery Discussed w/Patient: Bleeding, Anesthesia Risks, Infection, Need for Future C-Sections and Availability of other non-permanent control options Multi Select Codes Urinary/Genital Urinary/Genital CPT Codes: 13662 Delivery [facility]
--- NOTE | 2023-07-29 17:30 | DCINST_ITS ---
Discharge Instructions Diet Discharge Diet: No restrictions Activity Discharge Activity: May Not Drive (for 2 weeks or while taking narcotic pain medications.), May Shower and May Take a Tub Bath (in 7 days.) May resume sexual activity in: 4-6 weeks Weight Bearing Status: Full weight bearing Lifting Restrictions: 20 pounds Dressing / Incision Call your doctor if your incision/area has: Continuous Slow Oozing, Sudden Increased Bleeding, Increased Pain/ Swelling, Increased Redness and Foul Smelling Discharge Call your doctor if you observe: Fever of 101 or Higher and Using more than 1 pad per hour Suture Line Care: Avoid Pulling/Pushing and Avoid Pinching/Bending Cleanse incision/area with: Soap & Water and Keep Dressing Clean & Dry Follow Up Care Please Follow Up With: Yaneth Parham DO When: Call [phone] to make an appointment for an incision check in 1-2 weeks. Test Results: Test results from this visit will be discussed in further detail at your follow- up appointment, if applicable. Discharge Plan Admission Admit Date/Time: 07/27/23 19:04 Attending Provider: Yaneth Parham Primary Care Provider: Care Physician,Brittaney Primary Discharge Orders/Prescriptions Prescriptions: No Action prenat.vits,stevie,zbk-aiyo-hmbij Tablet 1 tab PO DAILY Referrals / Follow Up: Care Physician,Brittaney Primary [Primary Care Provider] -
[2023-07-29] MEDS: Oxytocin 15 Units/NS 250ml 15 UNITS/250 ML IV.SOLN 83 UNITS IV (17:45)
[2023-07-29] MEDS: Ketorolac 30 MG/ML Syringe IV (19:01)
[2023-07-29] MEDS: Acetaminophen 500 MG Tablet 1000 MG PO (21:04)
[2023-07-29] MEDS: Lactated Ringers 1,000 ML 100 ML IV (21:05)
--- NOTE | 2023-07-29 21:46 | NURSING ---
epidural cath removed at 0. Blue tip intact
[2023-07-30] VITALS (13 sets, daily range): BP systolic 109–136; BP diastolic 64–83; PULSE 63–107; RESP 15–18; TEMP 36.1–37.2; O2SAT 97–100
[2023-07-30] MEDS: Ketorolac 30 MG/ML Syringe IV ×3 (01:19→11:47)
[2023-07-30] MEDS: Acetaminophen 500 MG Tablet 1000 MG PO ×4 (03:24→21:03)
[2023-07-30] MEDS: Enoxaparin 40 MG/0.4 ML Syringe SC (05:04)
[2023-07-30 05:28] LABS: Hematocrit 28.4 % (37-47); Hemoglobin 8.9 g/dL (12.0-15.0); Mean Corp Hgb Conc 31.3 g/dL (32-36); Mean Corpuscular Hgb 29.3 pg (27.0-32.0); Mean Corpuscular Volume 93.4 fL (81-99); Platelet Count 251 K/mm3 (150-450); RBC Distribution Width CV 14.4 % (11.6-14.6); RBC Distribution Width SD 48.9 fl (35.1-43.9); Red Blood Count 3.04 M/mm3 (4.2-5.4); White Blood Count 15.6 K/mm3 (4.4-11.0)
--- NOTE | 2023-07-30 06:09 | CPS ---
IS left at patient bedside, RN to go over with patient
[2023-07-30] MEDS: 0.9% Saline Lock 10 ML Syringe IV ×2 (07:37→11:48)
[2023-07-30] MEDS: Senna/Docusate Sodium 1 Tablet PO (09:15)
--- NOTE | 2023-07-30 16:52 | PCM.PN.OB ---
Subjective Subjective Patient doing well without complaints. Tolerating PO. Ambulating and voiding without difficulty. feeding well. Denies chest pain, shortness of breath, calf pain/swelling, fevers, chills, lightheadedness. Objective Data Objective Data Vital Signs: Vital Signs Temp Pulse Resp BP Pulse Ox O2 Del Method 97.6 F L 82 16 122/65 H 98 Room Air 07/30/23 12:00 07/30/23 14:38 07/30/23 14:38 07/30/23 12:00 07/30/23 14:38 07/30/23 14:38 Oxygen Delivery Method Room Air Weight: 162 lb 4.163 oz Body Mass Index (BMI) 28.7 Intake & Output: Intake and Output for Last 24 Hours 07/28/23 07/29/23 07/30/23 23:59 23:59 23:59 Intake Total 501.77 / 501.77 5018.54 / 5018.54 1000 / 1000 Output Total 3850 / 3850 975 / 975 Balance 501.77 / 501.77 1168.54 / 1168.54 25 / 25 Lab / Micro Data 07/30/23 05:10 07/27/23 19:40 Labs: Laboratory Results - last 24 hr 07/30/23 05:10: WBC 15.6 H, RBC 3.04 L, Hgb 8.9 L, Hct 28.4 L, MCV 93.4, MCH 29.3, MCHC 31.3 L, RDW Std Deviation 48.9 H, RDW Coeff of Katerin 14.4, Plt Count 251, MPV 10.0 ROS Constitutional Constitutional: Reports systems reviewed and no addt'l complaints, except as documented Cardiovascular Cardiovascular: Reports systems reviewed and no addt'l complaints, except as documented Respiratory/Chest Respiratory/Chest: Reports systems reviewed and no addt'l complaints, except as documented Gastrointestinal Gastrointestinal: Reports systems reviewed and no addt'l complaints, except as documented Physical Exam Const alert, oriented x3 and no apparent distress HEENT Head and Scalp: atraumatic Resp normal respiratory effort GI soft to palpation and non-tender Inspection: incision intact, healing well and drainage (none) Bimanual Exam - Vag & Uterus: uterus non-tender Uterus Palpation: uterus fundus firm (below Umbilicus) Assessment & Plan (1) Failure to progress in first stage of labor: (2) Encounter for induction of labor: PLAN: Plan s/p LTCS PPD # 1 1. routine post care 2. breast feeding- support given 3. rh positive 4. rubella immune
[2023-07-30] MEDS: Ibuprofen 600 MG Tablet PO (18:13)
[2023-07-31] MEDS: Ibuprofen 600 MG Tablet PO ×2 (00:47→06:48)
[2023-07-31 00:51] VITALS: BP 132/75; PULSE 94; RESP 16; TEMP 37.4; O2SAT 97
[2023-07-31] MEDS: Acetaminophen 500 MG Tablet 1000 MG PO ×2 (03:04→09:05)
[2023-07-31] MEDS: Enoxaparin 40 MG/0.4 ML Syringe SC (05:48)
[2023-07-31 08:56] VITALS: BP 128/72; PULSE 86; RESP 16; TEMP 37.1; O2SAT 98
[2023-07-31] MEDS: Senna/Docusate Sodium 1 Tablet PO (09:05)
--- NOTE | 2023-07-31 12:51 | PCM.PN.OB ---
Subjective Subjective Patient doing well without complaints. Tolerating PO. Ambulating and voiding without difficulty. Feeding well. Denies chest pain, shortness of breath, calf pain/swelling, fevers, chills, lightheadedness. Objective Data Objective Data Vital Signs: Vital Signs Temp Pulse Resp BP Pulse Ox O2 Del Method 98.7 F 86 16 128/72 H 98 Room Air 07/31/23 08:56 07/31/23 08:56 07/31/23 08:56 07/31/23 08:56 07/31/23 08:56 07/31/23 08:56 Oxygen Delivery Method Room Air Weight: 162 lb 4.163 oz Body Mass Index (BMI) 28.7 Intake & Output: Intake and Output for Last 24 Hours 07/29/23 07/30/23 07/31/23 23:59 23:59 23:59 Intake Total 5018.54 / 5018.54 1000 / 1000 Output Total 3850 / 3850 975 / 975 Balance 1168.54 / 1168.54 Lab / Micro Data 07/30/23 05:10 07/27/23 19:40 Physical Exam Const alert, oriented x3 and no apparent distress HEENT Head and Scalp: atraumatic Resp normal respiratory effort GI soft to palpation and non-tender Inspection: incision intact, healing well and drainage (none) Bimanual Exam - Vag & Uterus: uterus non-tender Uterus Palpation: uterus fundus firm (below Umbilicus) Assessment & Plan (1) Status post delivery: COMMENT: JV girl, failure to progress (2) Mild pre-eclampsia: COMMENT: plan IOL at 37 weeks. (thursday07/27/23 at 7pm) NST on thursday07/25/23 on L&D (3) Elevated BP without diagnosis of hypertension: COMMENT: baseline labs obtained and normal. seems to be isolated to one episode (4) Not immune to rubella: COMMENT: Equivocal-offer MMR PP PLAN: Plan s/p LTCS PPD # 2 1. routine post care, provide abdominal binder for additional support 2. breast feeding- support given 3. rh positive 4. rubella immune 5. d/c home today
== END 2023-07-31 12:05 | disposition home or self-care (01) | DRG 788 ==
PROVIDERS: Registered Nurse; Admitting Provider Obstetrics & Gynecology; Visit Provider Obstetrics & Gynecology
DX: O14.04 Mild to moderate pre-eclampsia, complicating childbirth (principal); O62.0 Primary inadequate contractions; Z3A.37 37 weeks gestation of pregnancy; Z37.0 Single live birth
CPT/HCPCS: 59025; 59050; 82565; 82570; 84156; 84450; 84460; 84550; 85025; 85027; 86780; 86850; 86900; 86901; 99221; J7120; A4216; G0378; J2405